=== PATIENT | male | born 1940 | race Two or more races ===

== ENCOUNTER → 2016-04-14 | Day surgery (SDC) | payer MEDICARE, OTHER ==
--- NOTE | 2016-04-13 15:09 | Pre-op HX & Phy Repo 2 SIG ---
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 PROCEDURES TO BE PERFORMED: 1. Pars plana vitrectomy. 2. Membrane peel. 3. Gas fluid exchange, right eye. BRIEF NOTE: This is the first [place] retinal admission for the patient who is a 75-year-old gentleman with decreased vision in the right eye. His past ocular history is remarkable for cataract surgery done in January. He has complained of blurred vision since then. On exam, the patient was seen to have significant epiretinal membrane on the right. PAST MEDICAL HISTORY: Remarkable for arthritis and hypertension. MEDICATIONS: He is on tamsulosin, levothyroxine, and omeprazole. ALLERGIES: He has no allergies. PHYSICAL EXAMINATION: Best vision at the time of admission was 20/70 in the right eye 20/40- 2 on the left with pressures of 16 and 14. The anterior segment on the right showed a peripheral iridotomy at 12 o'clock. There was a posterior chamber lens, well positioned. The left eye showed a similar superior iridotomy. Moderate cataract was seen. Funduscopic examination, right eye shows significant cystoid edema with a moderately dense epiretinal membrane. The left was benign. General physical examination will be completed by Dr. Toney. ASSESSMENT: Macular pucker with diffuse edema right eye. PLAN: The plan is to perform a pars plana vitrectomy with peeling of the epiretinal membrane, injection of Kenalog and a possible air-fluid exchange or gas exchange. The risks and benefits of surgery gone over the patient with potential for infection, hemorrhage, glaucoma, retinal detachment, remote possibility of loss of the eye. The risk of anesthesia was discussed. The patient understands and consents to the surgery, which will be performed on tomorrow morning. Keon Rivers M.D. DR: Nicole JOB#: [id number] CC:
[2016-04-14] VITALS (8 sets, daily range): BP systolic 122–156; BP diastolic 72–94
[~2016-04-14] VITALS: Ht 165.1 cm; Wt 72.6 kg
[~2016-04-14] MED LIST: Atropine Sulfate 3.5gm Oint ONE; BSS 15ml BTL ONE; BSS 500ml btl ONE; Bupivacaine 0.75% 30ml vial INJ ONE; Dexamethasone 4mg/ml vial ONE; DiphenhydrAMINE 50mg/ml Inj IVP PRN; DiphenhydrAMINE 50mg/ml Inj ONE; EPINEPHrine 1mg/1ml Amp ONE; Indocyanine Green 25mg Inj INJ ONE; Kenalog-10 5ml Inj ONE; Kenalog-40 1ml Vial ONE; LEVOTHYROXINE25 MCG ORAL; LR 1000ml 1,000 ML IVLG SCH; LR 1000ml ONE; Labetalol 5mg/ml 20ml vial IV PRN; Lidocaine 1% MPF 10mg/ml 5ml ONE; Lidocaine 2% MPF 5ml Vial INJ ONE; Maxitrol Opth Oint 3.5gm ONE; NS Irrig 1000ml ONE; Norco 5mg/325mg tab ORAL PRN; OMEPRAZOLE20 M2 ORAL; Pilocarpine 2% Opth Soln ONE; Pilocarpine 4% Opth Soln ONE; Povidone-Iodine 5% opth solution ONE; Pred Forte 1% Opth Susp 1ml RIGHT EYE SCH; Propofol 10mg/ml 20ml IV ONE; SAW PALMETTO PO; Sodium Hyaluronate 10 mg/ml 0.85ml ONE; Sterile Water Irrig 1000ml IRRIG ONE; TAMSULOSIN HCL0.4 MG ORAL; Tetracaine 0.5% Opth Soln ONE; Triamcinolone 40mg/ml PF Vial ONE; [UNRECOGNIZED DRUG - SUPPLY] PO; fentaNYL 100 mcg/2 mL IV ONE
[2016-04-14] MEDS: Cyclopentolate 1% Opth Sol RIGHT EYE SCH ×3 (05:59→06:20)
[2016-04-14] MEDS: Phenylephrine 2.5% Op Soln RIGHT EYE SCH ×3 (06:00→06:20)
[2016-04-14] MEDS: Flurbiprofen 0.03% Opth Sol 2.5ml RIGHT EYE SCH ×3 (06:00→06:20)
[2016-04-14] MEDS: Gatifloxacin Opth Solution 0.5% RIGHT EYE SCH ×3 (06:00→06:20)
[2016-04-14 06:27] LABS: BASOPHILS % (AUTO) 1.2 % (0.0-2.0); EOSINOPHILS % (AUTO) 2.5 % (0.0-3.0); LYMPHOCYTES % (AUTO) 31.9 % (20.0-45.0); MEAN CORPUSCULAR HEMOGLOBIN 30.5 PG (27.0-31.0); MEAN CORPUSCULAR HGB CONC 32.7 G/DL (32.0-36.0); MEAN CORPUSCULAR VOLUME 93 FL (80-99); MEAN PLATELET VOLUME 10.4 FL (6.5-10.1); MONOCYTES % (AUTO) 7.4 % (1.0-10.0); PLATELET COUNT 160 K/UL (150-450); RED BLOOD COUNT 4.46 M/UL (4.70-6.10); RED CELL DISTRIBUTION WIDTH 13.2 % (11.6-14.8); WHITE BLOOD COUNT 6.8 K/UL (4.8-10.8)
[2016-04-14 06:47] LABS: ANION GAP 13 (5-15); CALCIUM 8.5 mg/dL (8.6-10.2); CARBON DIOXIDE 24 mEQ/L (20-30); CHLORIDE 106 mEQ/L (98-107); CREATININE 0.8 mg/dL (0.7-1.2); HEMOLYSIS 2; POTASSIUM 3.9 mEQ/L (3.4-4.9); SODIUM 143 mEQ/L (135-145)
--- NOTE | 2016-04-14 07:20 | Anethesia Preoperative Eval ---
Anesthesia Pre-op PMH/ROS General Date of Evaluation: Apr 14, 2016 Anesthesiologist: Ricardo ASA Score: ASA 2 Mallampati Score Class I : Soft palate, uvula, fauces, pillars visible Class II: Soft palate, uvula, fauces visible Class III: Soft palate, base of uvula visible Class IV: Only hard plate visible Mallampati Classification: Class II Surgeon: Tita Diagnosis: Right eye macular pucker Surgical Procedure: Right eye vitrectomy Anesthesia History: none Social History: smoking Family History: no anesthesia problems Allergies: Coded Allergies: No Known Allergies (Unverified , 02/10/16) Medications: see eMAR Past Medical History Cardiovascular: Reports: HTN, Denies: CAD, [place], arrhythmia, other, valve dz Pulmonary: Denies: COPD, VARSHA, asthma, other Gastrointestinal/Genitourinary: Reports: GERD - gastritis, other - BPH, Denies: CRI, ESRD Neurologic/Psychiatric: Denies: CVA, TIA, dementia, depression/anxiety, other Endocrine: Reports: hypothyroidism, Denies: DM, other, steroids HEENT: Denies: SAXMAN (L), SAXMAN (R), cataract (L), cataract (R), glaucoma, other Hematology/Immune: Denies: DVT, anemia, bleeding disorder, other Musculoskeletal/Integumentary: Reports: OA, Denies: DDD, DJD, RA, edema, other Other: obesity PSxH Narrative: TURP, RIHR Anesthesia Pre-op Phys. Exam Physician Exam Last Vital Signs Date Time Temp Pulse Resp B/P Pulse Ox O2 Delivery O2 Flow Rate FiO2 04/14/16 06:23 98.0 52 18 122/73 97 Room Air Constitutional: NAD Cardiovascular: RRR Respiratory: CTA Airway Exam Mallampati Score: Class II MO: full ROM: full Anesthesia Pre-op A/P Labs Hematology Test 04/14/16 06:10 White Blood Count 6.8 K/UL (4.8-10.8) Red Blood Count 4.46 M/UL (4.70-6.10) L Hemoglobin 13.6 G/DL (14.2-18.0) L Hematocrit 41.6 % (42.0-52.0) L Mean Corpuscular Volume 93 FL (80-99) Mean Corpuscular Hemoglobin 30.5 PG (27.0-31.0) Mean Corpuscular Hemoglobin Concent 32.7 G/DL (32.0-36.0) Red Cell Distribution Width 13.2 % (11.6-14.8) Platelet Count 160 K/UL (150-450) Mean Platelet Volume 10.4 FL (6.5-10.1) H Neutrophils (%) (Auto) 57.0 % (45.0-75.0) Lymphocytes (%) (Auto) 31.9 % (20.0-45.0) Monocytes (%) (Auto) 7.4 % (1.0-10.0) Eosinophils (%) (Auto) 2.5 % (0.0-3.0) Basophils (%) (Auto) 1.2 % (0.0-2.0) Chemistry Test 04/14/16 06:10 Sodium Level 143 mEQ/L (135-145) Potassium Level 3.9 mEQ/L (3.4-4.9) Chloride Level 106 mEQ/L (98-107) Carbon Dioxide Level 24 mEQ/L (20-30) Anion Gap 13 (5-15) Blood Urea Nitrogen 9 mg/dL (7-23) Creatinine 0.8 mg/dL (0.7-1.2) Estimat Glomerular Filtration Rate mL/min (>60) Glucose Level 124 mg/dL (74-106) H Calcium Level 8.5 mg/dL (8.6-10.2) L Studies Pre-op Studies: EKG - RBBB, SB at 51 Risk Assessment & Plan Assessment: ASA II Plan: MAC Status Change Before Surgery: No Pre-Antibiotics Drug: N/A GEOVANY LOU M.D. Apr 14, 2016 07:20
--- NOTE | 2016-04-14 07:22 | 48 Hour Post Anesthesia Eval ---
Post Anesthesia Evaluation Procedure: Right eye vitrectomy Date of Evaluation: Apr 14, 2016 Blood Pressure Systolic: 138 0: 81 Pulse Rate: 56 Respiratory Rate: 16 O2 Sat by Pulse Oximetry: 97 Airway: patent Nausea: No Vomiting: No Pain Intensity: 0 Hydration Status: adequate Cardiopulmonary Status: at baseline Mental Status/LOC: patient returned to baseline Post-Anesthesia Complications: 0 Follow-up care needed: ready to discharge GEOVANY LOU M.D. Apr 14, 2016 07:22
--- NOTE | 2016-04-14 07:22 | Immediate Post-Op Evaluation ---
Immediate Post-Op Evalulation Immediate Post-Op Evalulation Procedure: Right eye vitrectomy Date of Evaluation: Apr 14, 2016 Time of Evaluation: 09:28 IV Fluids: 300 Blood Products: 0 Estimated Blood Loss: 0 Urinary Output: 0 Blood Pressure Systolic: 156 Blood Pressure Diastolic: 82 Pulse Rate: 61 Respiratory Rate: 17 O2 Sat by Pulse Oximetry: 96 Temperature (Fahrenheit): 97.2 Pain Score (1-10): 0 Nausea: No Vomiting: No Complications 0 Patient Status: awake, reacts, patent, none Hydration Status: adequate Drug: N/A GEOVANY LOU M.D. Apr 14, 2016 07:22
--- NOTE | 2016-04-14 07:46 | Pre-Procedure Note/Attestation ---
Pre-Procedure Note/Attestation Complete Prior to Procedure Planned Procedure: right Procedure Narrative: PPV, membrane peel, gas-fluid exchange, possible endolaser, Kenalog injection R eye Indications for Procedure Pre-Operative Diagnosis: Macular pucker with impending macular hole R eye Attestation I attest that I discussed the nature of the procedure; its benefits; risks and complications; and alternatives (and the risks and benefits of such alternatives ), prior to the procedure, with the patient (or the patient's legal customer solutions representative). I attest that, if there was a reasonable possibility of needing a blood transfusion, the patient (or the patient's legal customer solutions representative) was given the [place] Department [employer] Services standardized written summary, pursuant to the [place] Blood Safety Act ([place] Health and Safety Code # 1645, as amended). I attest that I re-evaluated the patient just prior to the surgery and that there has been no change in the patient's H&P, except as documented below: MICHAEL THORNTON Apr 14, 2016 07:46
--- NOTE | 2016-04-14 09:27 | Brief Operative Note ---
Immediate Post Operative Note Operative Note Chief Complaint: Distorted vision R eye Pre-op Diagnosis: Macular pucker with impending macular hole R eye Procedure: PPV, kenalog, ICG assisted membrane peel, iris retractor placement and removal, lysis of iris adhesions, gas fluid exchange (24% SF6) right eye Post-op Diagnosis: same as pre-op plus - Dense posterior synechiae with miosis Surgeon: dashawn Anesthesiologist: Morteza Anesthesia: MAC Specimen: none Complications: none Condition: stable Estimated Blood Loss: none Drains: none Implant(s) used?: No MICHAEL THORNTON Apr 14, 2016 09:27
--- NOTE | 2016-04-14 10:19 | Pre-op HX & Phy Repo 2 SIG ---
DATE OF ADMISSION: 04/14/2016 PRESURGICAL INTERNAL MEDICINE HISTORY AND PHYSICAL: REASON FOR EVALUATION: I was asked by Dr. Keon Rivers. The patient is a patient 75-year-old male, who is going for elective surgery on the right eye. The patient has a macular pucker, right eye. Please see full Ophthalmology History and Physical by Dr. Keon Rivers. The patient was evaluated. Chart was reviewed. PAST MEDICAL HISTORY/REVIEW OF SYSTEMS: Remarkable for hypothyroidism, benign prostatic hypertrophy, bilateral inguinal hernia, and gastroesophageal reflux disease. The patient denies history of hypertension. No history of heart attack. No diabetes. Denies history of stroke or seizures. headache. Denies history of hepatitis. Denies history of anemia or renal failure. PAST SURGICAL HISTORY: Prostate surgery and inguinal hernia repair. FAMILY HISTORY: Father from complication of alcohol abuse, liver, and lung problem. Mother of old age. at the age of 99. ALLERGIES: Not known. PRESENT MEDICATIONS: Include omeprazole, levothyroxine, and saw palmetto. HABITS: The patient smoked for 35 years and stopped smoking since [address]. PHYSICAL EXAMINATION: GENERAL: Alert, well-developed, well-nourished male in his 70s. BMI is 26 kg/m2. VITAL SIGNS: Blood pressure 122/73, temperature 98.0 degrees Fahrenheit, pulse 52 and regular, and O2 saturation 97% on room air. SKIN: Dry and warm. No rashes. LYMPHATICS: Lymph nodes not enlarged. HEENT: Head, normocephalic. . Ears, clear. No discharge. Nose clear, no discharge. Eyes, full description per Dr. Keon Rivers. Mouth, clear and moist. Dentures upper and lower. NECK: Supple. No jugular vein distention. Carotids artery +2. No palpable mass. CHEST: No deformity or asymmetry. LUNGS: Clear. No rales or rhonchi. HEART: Sinus bradycardia. No ectopy. No murmur. No S3 or S4. ABDOMEN: Soft and benign. Liver and spleen not enlarged. No rebound. EXTREMITIES: No edema. No calf tenderness. No varicose veins. GENITOURINARY TRACT: History of BPH. No dysuria. No CVA tenderness. NEUROLOGIC: No tremor. No nystagmus. LABORATORY DATA: ECG, sinus bradycardia at 54 per minute, incomplete right bundle-branch block. The patient did not drink from last night. IMPRESSION: 1. Macular pucker, right eye. 2. Hypothyroidism. 3. Benign prostatic hypertrophy. 4. Gastroesophageal reflux disease. 5. Sinus bradycardia. PLAN: 1. Pars plana vitrectomy. 2. 25G membrane per Dr. Keon Rivers. CONCLUSION: The patient vital signs stable. He did not eat or drink from last night. EKG is sinus bradycardia with incomplete right bundle-branch block. The patient is asymptomatic and his condition optimized for surgery. Thank you very much, Dr. Keon Rivers, for the privilege to participate in the presurgical care of this interesting patient. Giovanny Toney M.D. DR: DOLORES JOB#: [id number] CC:
--- NOTE | 2016-04-14 14:59 | Operative Note - Dictated ---
DATE OF OPERATION: 04/14/2016 PREOPERATIVE DIAGNOSIS: Macular pucker with impending macular hole, right eye. POSTOPERATIVE DIAGNOSIS: Macular pucker with impending macular hole, right eye plus extensive posterior synechiae with miosis. PROCEDURES PERFORMED: 1. Pars plana vitrectomy. 2. Iris retractor placement and removal. 3. Lysis of iris adhesion. 4. ICG assisted membrane peel. 5. Kenalog injection. 6. Gas fluid exchange, right eye. SURGEON: Keon Rivers M.D. SHIP PILOT: None. ANESTHESIA: Local sedation. ANESTHESIOLOGIST: Dr. Priscilla Pro. JUSTIFICATION FOR SURGERY: This 75-year-old gentleman with a previous cataract surgery complained of distorted and blurred vision in the right eye. He was found to have an epiretinal membrane with an impending hole. BRIEF NOTE: The patient was brought to the operating room, placed on the operating room table in supine position. After a time-out was performed and agreed upon by the staff and initial monitoring secured by Dr. Pro, retrobulbar and Van Lint blocks were given in standard way. When blocks taken effect, she was prepped and draped in normal manner. The lid speculum was inserted into the right eye. Using a 23-gauge cannula system, the cannulas were placed in all except the inferonasal quadrant. Infusion secured inferotemporally. Because of the small pupil at 3 mm or less, attempt was made to place iris retractor at the four major quadrant. It was found that there were massive adhesions between the iris and implant capsule complex and filled through one of the paracentesis. A membrane pick was used to lyse adhesions. Healon was injected into the anterior chamber beneath the iris after which the iris retractors were easily placed. The vitrectomy was then begun posterior to the intraocular lens. The posterior capsule was slightly enlarged. The vitrectomy was carried further peripherally and leaving a small vitreous skirt. Posterior vitreous was also removed. It was noted that there was a dense epiretinal membrane present. Dusting with Kenalog was able to reveal the membrane and using a posterior viewing lens the membrane was engaged and gently peeled in an area roughly 3 disc diameters in size. It was suspected that there was residual ILM so staining was then effected with two drops of dilute ICG solution. The membrane was stained and remaining fragments that were adherent to the macula were removed and an area of about two disc diameters in size. Scleral depression was done. No peripheral breaks, tears, or detachments were seen. A small choroidal effusion was noted inferotemporally, but again no breaks were noted. At this juncture, an air-fluid exchange was performed followed by a gas-gas exchange with 24% mixture of SF6 leaving about a 90% fill. The Healon was evacuated from the anterior chamber and the iris retractors were removed. A membrane pick was used to gently bring the pupil back into a round position. The cannulas were removed and the wounds noted to be self-sealing. Topical moxifloxacin, Pred Forte, and pilocarpine 4% drops were instilled. Maxitrol ointment was then placed and the eye was patched and shielded. Prior to this, subconjunctival Decadron and gentamicin were injected inferiorly. The patient was then taken to recovery in excellent condition and he was placed in a face-down position. No problems were encountered. No complication seen. Keon Rivers M.D. DR: EMILE JOB#: [id number] CC: LALO
--- NOTE | 2016-04-16 11:50 | Cardiology Report ---
APPROVED REPORT EKG Measurement Heart [id number] Sinus bradycardia with sinus arrhythmia Incomplete right bundle branch block Borderline ECG
== END | disposition home or self-care (01) ==
LOC: SUR 05:26
DX: H35.371 Puckering of macula, right eye (principal); H35.81 Retinal edema; H21.541 Posterior synechiae (iris), right eye; H57.03 Miosis; R00.1 Bradycardia, unspecified; I45.10 Unspecified right bundle-branch block; I10 Essential (primary) hypertension; M19.90 Unspecified osteoarthritis, unspecified site; E03.9 Hypothyroidism, unspecified; K21.9 Gastro-esophageal reflux disease without esophagitis; N40.0 Benign prostatic hyperplasia without lower urinary tract symptoms; Z87.891 Personal history of nicotine dependence; E66.9 Obesity, unspecified; Z68.26 Body mass index [BMI] 26.0-26.9, adult; Z79.899 Other long term (current) drug therapy
CPT/HCPCS: 36415; 67042; 80048; 85025; 93005; J0171; J1100; J1200; J2704; J3010; J3301; J3470; J3490; J7120; 94003; 94150; J3300